=== PATIENT | male | born 1990 | race Caucasian/White ===

== ENCOUNTER 2016-09-10 08:26 | Emergency (ER) | payer SELFPAY ==
[2016-09-10] MEDS ORDERED: ONDANSETRON HCL INJ/PF 4 MG/2 ML SDV IV ONE (08:38)
[2016-09-10] MEDS ORDERED: KETOROLAC TROMETHAMINE INJ/PF 30 MG/1 ML SDV IV ONE (08:38)
--- NOTE | 2016-09-10 09:21 | ER Document Report ---
ED GI/ - General Time seen by provider: 09:15 Mode of Arrival: Ambulatory Information source: Patient TRAVEL OUTSIDE OF THE [place] IN LAST 30 DAYS: No - HPI Patient complains to provider of: Flank pain, Groin pain Onset: Other - see HPI note Associated symptoms: Hematuria <CARMENCITAJUDIIDALMIS - Last Filed: 09/10/16 13:52> <UMA CAI - Last Filed: 09/10/16 14:44> - General Chief Complaint: Flank Pain Stated Complaint: FLANK PAIN Notes: Patient is a 26 year old male presenting to the emergency department for kidney stones and pain to his left flank. Patient states his pain starts in his back and radiates to his groin area. Patient states he passes kidney stones frequently every few months. Patient states he can usually pass them on his own and he rarely comes to the emergency department to pass them. Patient states he had some hematuria last night and this morning. Patient states his last kidney stone he passed was about 2 months ago. Patient has been seen in the emergency department for kidney stones on 11/2014, 05/2014, and 11/2011. Patient has no known allergies. (IDALMIS TSE) This 26-year-old male patient comes emergency room complaining of pain into the left flank and left lower quadrant abdomen. He noted some hematuria last night, it was worse this morning with discomfort. He reports left hemiparesis stone was about 2 months ago, he frequently passes stones and usually does not need to get help for pain control. He does note that a few nights ago, he noted some hematuria, and a burning stinging discomfort but never developed any abdomen or flank pain. Today his urine shows too numerous to count WBCs and too numerous to count RBCs along with symptoms consistent with a left ureteral stone. We will do a CT limited due to the urine infection, collect a urine for chlamydia and gonorrhea testing, and culture the original clean catch urine. (UMA CAI) - Related Data Allergies/Adverse Reactions: No Known Allergies Allergy (Verified 09/10/16 08:31) Past Medical History - General Information source: Patient - Social History Smoking Status: Current Every Day Smoker Chew tobacco use (# tins/day): No Frequency of alcohol use: None Drug Abuse: None Family History: Arthritis, CAD, CVA, DM, Hyperlipidemia, Hypertension, Malignancy, Thyroid Disfunction Patient has suicidal ideation: No Patient has homicidal ideation: No Pulmonary Medical History: Reports: Hx Bronchitis, Hx Pneumonia Renal/ Medical History: Reports: Hx Kidney Stones - Immunizations Hx Diphtheria, Pertussis, Tetanus Vaccination: Yes - 2013 <IDALMIS TSE - Last Filed: 09/10/16 13:52> Review of Systems - Review of Systems Constitutional: No symptoms reported EENT: No symptoms reported Cardiovascular: No symptoms reported Respiratory: No symptoms reported Gastrointestinal: No symptoms reported Genitourinary: See HPI, Flank pain Male Genitourinary: No symptoms reported Musculoskeletal: See HPI Skin: No symptoms reported Hematologic/Lymphatic: No symptoms reported Neurological/Psychological: No symptoms reported -: Yes All other systems reviewed and negative <IDALMIS TSE - Last Filed: 09/10/16 13:52> Physical Exam - Vital signs Interpretation: Normal - General General appearance: Alert, Other - appears uncomfortable In distress: Mild - HEENT Head: Normocephalic, Atraumatic Eyes: Normal Pupils: PERRL Mucous membranes: Moist - Respiratory Respiratory status: No respiratory distress Chest status: Nontender Breath sounds: Normal Chest palpation: Normal - Cardiovascular Rhythm: Regular Heart sounds: Normal auscultation Murmur: No - Abdominal Inspection: Normal Distension: No distension Bowel sounds: Normal Tenderness: Tender - tenderness to palpation to the left lower quadrant Organomegaly: No organomegaly - Back Back: Normal, CVA tenderness - left - Extremities General upper extremity: Normal inspection, Normal ROM, Normal strength General lower extremity: Normal inspection, Normal ROM, Normal strength - Neurological Neuro grossly intact: Yes Cognition: Normal Orientation: AAOx4 [place] Coma Scale Eye Opening: Spontaneous [place]an Coma Scale Verbal: Oriented Karan Coma Scale Motor: Obeys Commands Karan Coma Scale Total: 15 Speech: Normal - Psychological Associated symptoms: Normal affect, Normal mood - Skin Skin Temperature: Warm Skin Moisture: Dry <IDALMIS TSE - Last Filed: 09/10/16 13:52> <UMA CAI - Last Filed: 09/10/16 14:44> - Vital signs Vitals: Pulse Resp BP Pulse Ox 82 24 H 148/99 H 99 09/10/16 08:33 09/10/16 08:33 09/10/16 08:33 09/10/16 08:33 Course - Laboratory Result Diagrams: 09/10/16 09:49 09/10/16 09:49 <IDALMIS TSE - Last Filed: 09/10/16 13:52> - Laboratory Result Diagrams: 09/10/16 09:49 09/10/16 09:49 <UMA CAI - Last Filed: 09/10/16 14:44> - Re-evaluation Re-evalutation: 09/10/16 14:44 The patient has remained quite comfortable for several hours with only the Toradol injection. He will be discharged home with antibiotics, pain medication , instructions to drink plenty of fluids, follow-up with [facility] urology, return to emergency room for fever, worsening pain that can't be controlled, or any other concerning symptoms. (UMA CAI) - Vital Signs Vital signs: Temp Pulse Resp BP Pulse Ox 97.6 F 54 L 16 109/59 L 96 09/10/16 12:04 09/10/16 12:04 09/10/16 12:04 09/10/16 12:04 09/10/16 12:04 - Laboratory Laboratory results interpreted by me: 09/10/16 09/10/16 09/10/16 09:49 09:49 10:00 WBC 12.4 H Seg Neutrophils % 84.3 H Lymphocytes % 8.4 L Absolute Neutrophils 10.4 H Calcium 10.3 H Urine Protein 100 H Urine Ketones Urine Blood LARGE H Ur Leukocyte Esterase LARGE H Urine Ascorbic Acid 40 H 09/10/16 12:53 WBC Seg Neutrophils % Lymphocytes % Absolute Neutrophils Calcium Urine Protein 100 H Urine Ketones TRACE H Urine Blood LARGE H Ur Leukocyte Esterase LARGE H Urine Ascorbic Acid 20 H Discharge <IDALMIS TSE - Last Filed: 09/10/16 13:52> <UMA CAI - Last Filed: 09/10/16 14:44> - Discharge Clinical Impression: Ureterolithiasis Urinary tract infection Qualifiers: Urinary tract infection type: site unspecified Hematuria presence: with hematuria Qualified Code(s): N39.0 - Urinary tract infection, site not specified ; R31.9 - Hematuria, unspecified Condition: Stable Disposition: HOME, SELF-CARE Additional Instructions: Kidney Stone You are passing a kidney stone. These stones are usually due to increased calcium or uric acid concentrations in your urine. Stones within the kidney itself are not painful. The pain occurs as the stone leaves the kidney to pass down the long tube, called the ureter, leading to the bladder. If the stone is small, it will usually pass by itself. Most patients can pass the stone at home. You will usually receive medications for pain, nausea or vomiting, and sometimes a medication to assist in passing the kidney stone. However, if the pain is very severe or if vomiting prevents you from taking oral pain medications, you may need to return for further treatment. Drink three or four quarts of fluids per day. You will be given pain medication (if needed) and urine strainers. Strain all your urine to see if the stone passes. If your doctor has asked you to bring the stone in for analysis, return with the stone once it has passed. Return if pain or vomiting become severe, if you develop a high fever, if you are unable to pass your urine, or if other unusual symptoms occur. Urinary Tract Infection: Your evaluation indicates that you have a urinary tract infection. This is due to germs growing in the bladder. This is a common problem. This infection usually responds quickly to antibiotics. Your antibiotic should be taken exactly as prescribed. Drink plenty of fluids -- three to four quarts a day. Certain urine infections require a culture. If the doctor obtained a culture, the results will be back in two days. You should call to see if a change in treatment is needed. A repeat urinalysis after you finish treatment is often recommended. The physician will let you know if further testing is required. Call the doctor if you develop fever, chills, flank pain, inability to urinate, or blood in the urine. DRINK LOTS OF WATER. TAKE THE MEDICATIONS PRESCRIBED. STRAIN YOUR URINE. FOLLOW UP WITH [facility]. RETURN TO THE EMERGENCY ROOM IF ANY NEW OR WORSENING SYMPTOMS. Prescriptions: Doxycycline Hyclate 100 mg PO BID #14 tablet. Oxycodone HCl/Acetaminophen [Percocet 5-325 mg Tablet] 1 - 2 tab PO ASDIR PRN # 15 tablet PRN Reason: Referrals: [facility] [Provider Group] - Follow up as needed Scribe Attestation: 09/10/16 14:43 I personally performed the services described in the documentation, reviewed and edited the documentation which was dictated to the scribe in my presence, and it accurately records my words and actions. (UMA CAI) Scribe Documentation - Scribe Written by Scribe:: Idalmis Tse 09/10/16 10:35 acting as scribe for :: Leigh <IDALMIS TSE - Last Filed: 09/10/16 13:52>
[2016-09-10 10:20] LABS: ABSOLUTE EOSINOPHILS # (AUTO) 0.3 10^3/uL (0.0-0.6); ABSOLUTE MONOCYTES (AUTO) 0.6 10^3/uL (0.1-1.4); ABSOLUTE NEUT (AUTO) 10.4 10^3/uL (1.7-8.2); BASOPHILS % (AUTO) 0.4 % (0-2); EOSINOPHILS % (AUTO) 2.4 % (0-6); HEMATOCRIT 43.4 % (37.9-51.0); HEMOGLOBIN 14.6 g/dL (13.5-17.0); HGB HCT DIFFERENCE 0.4; LYMPHOCYTES % (AUTO) 8.4 % (13-45); MEAN CORPUSCULAR HEMOGLOBIN 32.1 pg (27.0-33.4); MEAN CORPUSCULAR HGB CONC 33.6 g/dL (32.0-36.0); MEAN CORPUSCULAR VOLUME 95 fl (80-97); MONOCYTES % (AUTO) 4.5 % (3-13); RED BLOOD COUNT 4.55 10^6/uL (4.35-5.55); SEGMENTED NEUTROPHILS % (AUTO) 84.3 % (42-78); WHITE BLOOD COUNT 12.4 10^3/uL (4.0-10.5)
[2016-09-10 10:30] LABS: ALANINE AMINOTRANSFERASE 32 U/L (21-72); ALBUMIN 4.2 g/dL (3.5-5.0); ALKALINE PHOSPHATASE 51 U/L (38-126); ANION GAP 10 (5-19); ASPARTATE AMINO TRANSFERASE 23 U/L (17-59); BILIRUBIN,TOTAL 0.4 mg/dL (0.2-1.3); BLOOD UREA NITROGEN 12 mg/dL (7-20); CALCIUM 10.3 mg/dL (8.4-10.2); CARBON DIOXIDE 28 mmol/L (22-30); CHLORIDE 104 mmol/L (98-107); CREATININE RESULT 0.95 mg/dL (0.52-1.25); GLUCOSE 92 mg/dL (75-110); LIPASE 55.9 U/L (23-300); POTASSIUM 4.1 mmol/L (3.6-5.0); SODIUM 141.7 mmol/L (137-145); TOTAL PROTEIN 7.2 g/dL (6.3-8.2)
[2016-09-10 10:37] LABS: APPEARANCE,URINE CLOUDY; BILIRUBIN,URINE NEGATIVE (NEGATIVE); GLUCOSE, URINE NEGATIVE (NEGATIVE); KETONES,URINE NEGATIVE (NEGATIVE); LEUKOCYTE ESTERASE,URINE LARGE (NEGATIVE); NITRITE,URINE NEGATIVE (NEGATIVE); PROTEIN,URINE 100 mg/dL (NEGATIVE); UROBILINOGEN,URINE NEGATIVE mg/dL (<2.0)
[2016-09-10] MEDS ORDERED: NORMAL SALINE 1000 ML 1,000 ML IV ONE (10:49)
[2016-09-10] MEDS ORDERED: CEFTRIAXONE 1 GM/D5W RTU 50 ML IV ONE (13:02)
[2016-09-10 13:19] LABS: APPEARANCE,URINE CLOUDY; BILIRUBIN,URINE NEGATIVE (NEGATIVE); GLUCOSE, URINE NEGATIVE (NEGATIVE); KETONES,URINE TRACE mg/dL (NEGATIVE); LEUKOCYTE ESTERASE,URINE LARGE (NEGATIVE); NITRITE,URINE NEGATIVE (NEGATIVE); PROTEIN,URINE 100 mg/dL (NEGATIVE); URINE SPECIFIC GRAVITY 1.016; UROBILINOGEN,URINE NEGATIVE mg/dL (<2.0)
[2016-09-10 13:40] LABS: CHLAM PCR NOT DETECTED (NOT DETECT)
[2016-09-10 15:28] VITALS: BP 104/71
== END 2016-09-10 15:29 | disposition home or self-care (01) ==
LOC: ER 08:26
DX: N13.2 Hydronephrosis with renal and ureteral calculous obstruction (principal); N39.0 Urinary tract infection, site not specified; R31.0 Gross hematuria; F17.200 Nicotine dependence, unspecified, uncomplicated
CPT/HCPCS: 99284; 96361; 96375; 96365; 36415; 87086; 83690; 85025; 80053; 81001; 87491; 87591; 76380; J1885; J2405; J7030; J0696

== ENCOUNTER 2016-09-11 06:10 | Emergency (ER) | payer SELFPAY | END 2016-09-11 06:41 | disposition left against medical advice (07) | LOC: ER 06:10 | DX: Z53.21 Procedure and treatment not carried out due to patient leaving prior to being seen by health care provider (principal) ==

== ENCOUNTER 2016-09-12 21:23 | Emergency (ER) | payer SELFPAY ==
[2016-09-12 22:19] VITALS: BP 113/67
== END 2016-09-12 23:10 | disposition left against medical advice (07) ==
LOC: ER 21:23
DX: Z53.21 Procedure and treatment not carried out due to patient leaving prior to being seen by health care provider (principal)

== ENCOUNTER 2016-09-15 07:50 | Emergency (ER) | payer SELFPAY ==
[2016-09-15] MEDS ORDERED: KETOROLAC TROMETHAMINE INJ/PF 30 MG/1 ML SDV IV ONE (08:55)
[2016-09-15] MEDS ORDERED: NORMAL SALINE 1000 ML 1,000 ML IV ONE (08:55)
[2016-09-15] MEDS ORDERED: ONDANSETRON HCL INJ/PF 4 MG/2 ML SDV IV ONE (08:55)
[2016-09-15 09:08] LABS: ABSOLUTE EOSINOPHILS # (AUTO) 0.4 10^3/uL (0.0-0.6); ABSOLUTE LYMPHOCYTES (AUTO) 1.4 10^3/uL (0.5-4.7); ABSOLUTE MONOCYTES (AUTO) 0.7 10^3/uL (0.1-1.4); BASOPHILS % (AUTO) 0.2 % (0-2); EOSINOPHILS % (AUTO) 2.7 % (0-6); HEMATOCRIT 43.5 % (37.9-51.0); HEMOGLOBIN 14.9 g/dL (13.5-17.0); HGB HCT DIFFERENCE 1.2; LYMPHOCYTES % (AUTO) 10.7 % (13-45); MEAN CORPUSCULAR HEMOGLOBIN 32.5 pg (27.0-33.4); MEAN CORPUSCULAR HGB CONC 34.2 g/dL (32.0-36.0); MEAN CORPUSCULAR VOLUME 95 fl (80-97); MONOCYTES % (AUTO) 5.1 % (3-13); RED BLOOD COUNT 4.58 10^6/uL (4.35-5.55); RED CELL DISTRIBUTION WIDTH 12.9 % (11.5-14.0); SEGMENTED NEUTROPHILS % (AUTO) 81.3 % (42-78); WHITE BLOOD COUNT 13.5 10^3/uL (4.0-10.5)
[2016-09-15 09:18] LABS: APPEARANCE,URINE SLIGHTLY-CLOUDY; BILIRUBIN,URINE NEGATIVE (NEGATIVE); GLUCOSE, URINE NEGATIVE (NEGATIVE); KETONES,URINE NEGATIVE (NEGATIVE); LEUKOCYTE ESTERASE,URINE LARGE (NEGATIVE); NITRITE,URINE NEGATIVE (NEGATIVE); PROTEIN,URINE 100 mg/dL (NEGATIVE); URINE SPECIFIC GRAVITY 1.015; UROBILINOGEN,URINE NEGATIVE mg/dL (<2.0)
[2016-09-15 09:19] LABS: ALANINE AMINOTRANSFERASE 22 U/L (21-72); ALBUMIN 4.5 g/dL (3.5-5.0); ALKALINE PHOSPHATASE 49 U/L (38-126); ANION GAP 14 (5-19); ASPARTATE AMINO TRANSFERASE 21 U/L (17-59); BILIRUBIN,TOTAL 0.5 mg/dL (0.2-1.3); BLOOD UREA NITROGEN 13 mg/dL (7-20); CALCIUM 11.2 mg/dL (8.4-10.2); CARBON DIOXIDE 24 mmol/L (22-30); CHLORIDE 105 mmol/L (98-107); CREATININE RESULT 1.02 mg/dL (0.52-1.25); GLUCOSE 95 mg/dL (75-110); POTASSIUM 4.6 mmol/L (3.6-5.0); SODIUM 143.2 mmol/L (137-145); TOTAL PROTEIN 7.6 g/dL (6.3-8.2)
[2016-09-15] MEDS ORDERED: MORPHINE SULFATE 10 MG/ML INJ IV ONE (09:44)
[2016-09-15 10:36] VITALS: BP 135/83
--- NOTE | 2016-09-15 10:57 | ER Document Report ---
ED GI/ - General Chief Complaint: Possible Kidney Stone Stated Complaint: FLANK PAIN Mode of Arrival: Ambulatory Information source: Patient Notes: Patient states that he was diagnosed with a kidney stone 5 days ago. Patient complains of continued flank pain, hematuria, nausea, vomiting. Patient denies any fever. Patient states he has not followed up with a urologist because he does not have insurance. Patient additionally reports that he does have pain medication at home but has not wanted to take pain medication as he has a previous history of heroin addiction, and does not want to get addicted to pain medications. TRAVEL OUTSIDE OF THE [place] IN LAST 30 DAYS: No - HPI Patient complains to provider of: Abdominal pain, Flank pain, Hematuria Onset: Last week Timing/Duration: Persistent Quality of pain: Sharp Pain Level: 5 Location: LLQ, Left flank Associated symptoms: Hematuria, Nausea, Vomiting. denies: Fever, Urinary hesitancy, Urinary frequency, Urinary retention, Urinary urgency Exacerbated by: Denies Relieved by: Denies Similar symptoms previously: Yes Recently seen / treated by doctor: Yes - Related Data Allergies/Adverse Reactions: No Known Allergies Allergy (Verified 09/15/16 07:58) Past Medical History - General Information source: Patient - Social History Smoking Status: Current Every Day Smoker Chew tobacco use (# tins/day): No Frequency of alcohol use: None Drug Abuse: None Occupation: outboard motor mechanic Family History: Arthritis, CAD, CVA, DM, Hyperlipidemia, Hypertension, Malignancy, Thyroid Disfunction Patient has suicidal ideation: No Patient has homicidal ideation: No Pulmonary Medical History: Reports: Hx Bronchitis, Hx Pneumonia Renal/ Medical History: Reports: Hx Kidney Stones. Denies: Hx Peritoneal Dialysis Surgical Hx: Negative - Immunizations Hx Diphtheria, Pertussis, Tetanus Vaccination: Yes - 2013 Review of Systems - Review of Systems Constitutional: Recent illness - Patient was treated for UTI. denies: Fever EENT: No symptoms reported Cardiovascular: No symptoms reported. denies: Chest pain Respiratory: No symptoms reported. denies: Cough, Short of breath Gastrointestinal: Abdominal pain, Nausea, Vomiting. denies: Diarrhea Genitourinary: Flank pain, Hematuria Male Genitourinary: No symptoms reported Musculoskeletal: Back pain Skin: No symptoms reported Hematologic/Lymphatic: No symptoms reported Neurological/Psychological: No symptoms reported Physical Exam - Vital signs Vitals: Temp Pulse Resp BP Pulse Ox 97.7 F 65 24 H 130/85 H 98 09/15/16 07:55 09/15/16 07:55 09/15/16 07:55 09/15/16 07:55 09/15/16 07:55 - General General appearance: Appears well, Alert In distress: Mild - HEENT Head: Normocephalic, Atraumatic Eyes: Normal Nasal: Normal Mouth/Lips: Normal Mucous membranes: Normal Neck: Normal, Supple. No: Lymphadenopathy - Respiratory Respiratory status: No respiratory distress Chest status: Nontender Breath sounds: Normal. No: Rales, Rhonchi, Stridor, Wheezing Chest palpation: Normal - Cardiovascular Rhythm: Regular Heart sounds: S1 appreciated, S2 appreciated Murmur: No - Abdominal Inspection: Normal Distension: No distension Bowel sounds: Normal Tenderness: Tender - Mild left lateral abdominal tenderness Organomegaly: No organomegaly - Back Back: CVA tenderness - Left. No: Vertebra tenderness - Extremities General upper extremity: Normal inspection, Normal strength General lower extremity: Normal inspection, Normal strength - Neurological Neuro grossly intact: Yes Cognition: Normal Karan Coma Scale Eye Opening: Spontaneous [place] Coma Scale Verbal: Oriented [place] Coma Scale Motor: Obeys Commands Karan Coma Scale Total: 15 - Psychological Associated symptoms: Normal affect, Normal mood - Skin Skin Temperature: Warm Skin Moisture: Dry Skin Color: Normal Course - Re-evaluation Re-evalutation: 09/15/16 10:[address] Miguel regarding patient presentation. Reviewed patient' s diagnostic test results from 09/10/2016 visit as well as today's. Patient with urinalysis findings that seem improved from prior ER visit. Patient's urine culture from ER visit on 09/10/16 had no growth. Patient with normal renal function. Patient reports that his pain symptoms have improved after pain medication. Discussed planning care with patient. Patient encouraged that he will have to follow-up with urology for further management as it is likely that he may not be able to pass this kidney stone. Patient states that he would like to have something else to manage his pain symptoms as he wants to avoid use of narcotics as much as possible. Discussed literature findings regarding Flomax. Patient would like to take this medication. - Vital Signs Vital signs: Temp Pulse Resp BP Pulse Ox 97.7 F 55 L 16 135/83 H 99 09/15/16 10:32 09/15/16 10:32 09/15/16 10:32 09/15/16 10:32 09/15/16 10:32 - Laboratory Result Diagrams: 09/15/16 08:26 09/15/16 08:26 Laboratory results interpreted by me: 09/15/16 09/15/16 09/15/16 08:07 08:26 08:26 WBC 13.5 H Seg Neutrophils % 81.3 H Lymphocytes % 10.7 L Absolute Neutrophils 11.0 H Calcium 11.2 H Urine Protein 100 H Urine Blood LARGE H Ur Leukocyte Esterase LARGE H 09/15/16 10:55 Labs- Entire Visit 09/15/16 09/15/16 09/15/16 08:07 08:26 08:26 WBC 13.5 H RBC 4.58 Hgb 14.9 Hct 43.5 MCV 95 MCH 32.5 MCHC 34.2 RDW 12.9 Plt Count 270 Seg Neutrophils % 81.3 H Lymphocytes % 10.7 L Monocytes % 5.1 Eosinophils % 2.7 Basophils % 0.2 Absolute Neutrophils 11.0 H Absolute Lymphocytes 1.4 Absolute Monocytes 0.7 Absolute Eosinophils 0.4 Absolute Basophils 0.0 Sodium 143.2 Potassium 4.6 Chloride 105 Carbon Dioxide 24 Anion Gap 14 BUN 13 Creatinine 1.02 Est GFR ( Amer) > 60 Est GFR (Non-Af Amer) > 60 Glucose 95 Calcium 11.2 H Total Bilirubin 0.5 Direct Bilirubin 0.0 AST 21 ALT 22 Alkaline Phosphatase 49 Total Protein 7.6 Albumin 4.5 Urine Color YELLOW Urine Appearance SLIGHTLY-CLOUDY Urine pH 5.0 Ur Specific [place] 1.015 Urine Protein 100 H Urine Glucose (UA) NEGATIVE Urine Ketones NEGATIVE Urine Blood LARGE H Urine Nitrite NEGATIVE Urine Bilirubin NEGATIVE Urine Urobilinogen NEGATIVE Ur Leukocyte Esterase LARGE H Urine WBC (Auto) 107 Urine RBC (Auto) 65 Urine Bacteria (Auto) TRACE Urine Mucus (Auto) RARE Urine Ascorbic Acid NEGATIVE - Diagnostic Test Radiology reviewed: Reports reviewed - From previous ER visit Discharge - Discharge Clinical Impression: Ureterolithiasis, Flank pain Disposition: HOME, SELF-CARE Additional Instructions: Return immediately for any new or worsening symptoms Followup with your primary care provider, call tomorrow to make a followup appointment You have got to follow-up with the urologist for further management. Call today for an appointment time. Cultures are pending, we will call if you need any different treatment. Finish taking your antibiotic that was previously prescribed. KIDNEY STONE: You are passing or have passed a kidney stone. These stones are usually due to increased calcium or uric acid concentrations in your urine. Stones within the kidney itself are not painful. The pain occurs as the stone leaves the kidney to pass down the long tube, called the ureter, leading to the bladder. If the stone is small, it will usually pass by itself. Most patients can pass the stone at home. You will usually receive medications for pain, nausea or vomiting, and sometimes a medication to assist in passing the kidney stone. However, if the pain is very severe or if vomiting prevents you from taking oral pain medications, you may need to return for further treatment. Drink three or four quarts of fluids per day. You will be given pain medication (if needed) and urine strainers. Strain all your urine to see if the stone passes. If your doctor has asked you to bring the stone in for analysis, return with the stone once it has passed. Return if pain or vomiting become severe, if you develop a high fever, if you are unable to pass your urine, or if other unusual symptoms occur. TORADOL INJECTION: You have been given an injection of ketorolac tromethamine (Toradol). This is an excellent, safe drug for pain control. It also has potent antiinflammatory action. You should have significant pain relief within about one hour. Toradol is not addicting and is non-sedating. It does not interfere with driving or work. Call or return if you develop itching, hives, shortness of breath, or rash. PAIN MEDICATION INJECTION: You have received an injection of a pain medication. You should experience significant pain relief within 45 minutes. This drug is a narcotic - - it will impair your judgement, slow your reaction time and make you sleepy ( as well as relieve your pain). Narcotics also can cause nausea. You should not drive, work with machinery, or perform any task requiring mental alertness until all effects of the medication are gone -- six to eight hours. Do not take any alcohol, or sedatives, and do not take any other medication without checking with your physician. ANTINAUSEA MEDICATION: You have been given a medication to suppress nausea and vomiting. This type of medication can be given as a shot, pill, or suppository. It will usually last for many hours. Pills and shots usually last six to eight hours, suppositories last about 12 hours. For the typical illness, only one or two doses of the medication may be necessary. Mild lightheadedness may occur. This type of medicine can cause drowsiness. Do not drive or operate dangerous machinery while under its influence. Do not mix with alcohol. See your doctor at once if you have muscle spasms or tightness, or uncontrollable motions (particularly of the neck, mouth, or jaw). Persistent vomiting or severe lightheadedness should also be evaluated by the physician. ORAL NARCOTIC MEDICATION: You have been given a prescription for pain control. This medication is a narcotic. It's best taken with food, as nausea can result if taken on an empty stomach. Don't operate machinery or drive within six hours of taking this medication. Do not combine this medicine with alcohol, or with any medication which can cause sedation (such as cold tablets or sleeping pills) unless you get permission from the physician. Narcotics tend to cause constipation. If possible, drink plenty of fluids and eat a diet high in fiber and fruits. Please be aware that prescription narcotics also have the potential for abuse. People become addicted to these medications because of the general sense of wellbeing that they induce. This feeling along with a significant reduction in tension, anxiety, and aggression provides a stimulating seductive quality to these drugs. Once your pain is under control, we encourage you to discard your unused narcotics. FLOMAX (tamsulosin): Flomax is a medicine that shrinks the prostate gland. It helps relieve symptoms of benign prostatic hypertrophy, such as frequent urination, weak stream, and inadequate emptying. It has been shown to dilate the ureter (tube leading from the kidney to the bladder) and help in passing kidney stones Flomax usually causes no side effects. You may notice slight tiredness and dizziness for a few days. Some patients develop nasal congestion. Rarely, impotence can occur. If the symptoms are bothersome and don't improve with continued use, call your doctor. Contact your doctor or return if you have fainting spells, severe weakness or dizziness, shortness of breath, or rash. FOLLOW-UP CARE: If you have been referred to a physician for follow-up care, call the physician s office for an appointment as you were instructed or within the next two days. If you experience worsening or a significant change in your symptoms, notify the physician immediately or return to the Emergency Department at any time for re-evaluation. Prescriptions: Oxycodone HCl/Acetaminophen [Percocet 5-325 mg Tablet] 1 - 2 tab PO ASDIR PRN # 15 tablet PRN Reason: Promethazine HCl [Phenergan 25 mg Tablet] 25 mg PO Q6H PRN #15 tablet PRN Reason: Tamsulosin HCl [Flomax 0.4 mg Cap.sr] 0.4 mg PO DAILY #7 cap.sr.24h Forms: Return to Work Referrals: [facility] [Provider Group] - Follow up as needed [facility] [Provider Group] - Follow up as needed LUCY TRUJILLO MD [[facility]] - Follow up tomorrow
== END 2016-09-15 11:35 | disposition home or self-care (01) ==
LOC: ER 07:50
DX: N20.1 Calculus of ureter (principal); R31.9 Hematuria, unspecified; R10.9 Unspecified abdominal pain; R11.2 Nausea with vomiting, unspecified; F17.210 Nicotine dependence, cigarettes, uncomplicated
CPT/HCPCS: 99284; 96374; 96375; 36415; 87040; 87086; 85025; 80053; 81001; J1885; J2270; J2405; J7030

== ENCOUNTER 2016-12-15 12:14 | Emergency (ER) | payer SELFPAY ==
[2016-12-15] MEDS ORDERED: HYDROMORPHONE HCL INJ/PF 2 MG/ML AMPULE IV ONE (12:32)
[2016-12-15] MEDS ORDERED: ONDANSETRON HCL INJ/PF 4 MG/2 ML SDV IV ONE (12:32)
[2016-12-15] MEDS ORDERED: DIAZEPAM INJ 10 MG/2 ML DISP.SYRIN IV ONE (12:46)
--- NOTE | 2016-12-15 12:47 | ER Document Report ---
ED Medical Screen (RME) - General Chief Complaint: Abdominal Pain Stated Complaint: FLANK PAIN Time Seen by Provider: 12/15/16 12:46 Mode of Arrival: Wheelchair Information source: Patient TRAVEL OUTSIDE OF THE [place] IN LAST 30 DAYS: No - HPI Patient complains to provider of: Right flank and low back pain Onset: This morning Notes: 12/15/16 12:47 Is a 26-year-old male with a history of kidney stones, presents to the emergency room for complaints of right flank and low back pain that started this morning, and is associated with nausea and vomiting, he is also had recent hematuria - Related Data Allergies/Adverse Reactions: No Known Allergies Allergy (Verified 09/15/16 07:58) Past Medical History Pulmonary Medical History: Reports: Hx Bronchitis, Hx Pneumonia Renal/ Medical History: Reports: Hx Kidney Stones. Denies: Hx Peritoneal Dialysis - Immunizations Hx Diphtheria, Pertussis, Tetanus Vaccination: Yes - 2013 Physical Exam - Vital signs Vitals: Temp Pulse Resp BP Pulse Ox 97.5 F 55 L 24 H 135/84 H 100 12/15/16 12:32 12/15/16 12:32 12/15/16 12:32 12/15/16 12:32 12/15/16 12:32 Course - Vital Signs Vital signs: Temp Pulse Resp BP Pulse Ox 97.5 F 55 L 24 H 135/84 H 100 12/15/16 12:32 12/15/16 12:32 12/15/16 12:32 12/15/16 12:32 12/15/16 12:32 - Laboratory Result Diagrams: 12/15/16 11:25
[2016-12-15] MEDS ORDERED: DIPHENHYDRAMINE HCL 50 MG/ML VIAL IV ONE (12:51)
[2016-12-15] MEDS ORDERED: METOCLOPRAMIDE HCL INJ/PF 10 MG/2 ML SDV IV ONE (12:51)
[2016-12-15 13:20] LABS: ALANINE AMINOTRANSFERASE 37 U/L (21-72); ALBUMIN 5.2 g/dL (3.5-5.0); ALKALINE PHOSPHATASE 76 U/L (38-126); ANION GAP 18 (5-19); ASPARTATE AMINO TRANSFERASE 41 U/L (17-59); BILIRUBIN,DIRECT 0.4 mg/dL (0.0-0.4); BILIRUBIN,TOTAL 0.7 mg/dL (0.2-1.3); BLOOD UREA NITROGEN 12 mg/dL (7-20); CALCIUM 11.1 mg/dL (8.4-10.2); CARBON DIOXIDE 25 mmol/L (22-30); CHLORIDE 102 mmol/L (98-107); CREATININE RESULT 1.02 mg/dL (0.52-1.25); GLUCOSE 131 mg/dL (75-110); POTASSIUM 4.5 mmol/L (3.6-5.0); SODIUM 145.3 mmol/L (137-145); TOTAL PROTEIN 9.2 g/dL (6.3-8.2)
[2016-12-15 13:41] LABS: ABSOLUTE BASOPHILS # (AUTO) 0.1 10^3/uL (0.0-0.2); ABSOLUTE EOSINOPHILS # (AUTO) 0.2 10^3/uL (0.0-0.6); ABSOLUTE LYMPHOCYTES (AUTO) 1.5 10^3/uL (0.5-4.7); ABSOLUTE MONOCYTES (AUTO) 0.5 10^3/uL (0.1-1.4); ABSOLUTE NEUT (AUTO) 13.7 10^3/uL (1.7-8.2); BASOPHILS % (AUTO) 0.3 % (0-2); EOSINOPHILS % (AUTO) 1.1 % (0-6); HEMATOCRIT 49.4 % (37.9-51.0); HEMOGLOBIN 16.4 g/dL (13.5-17.0); HGB HCT DIFFERENCE -0.2; LYMPHOCYTES % (AUTO) 9.2 % (13-45); MEAN CORPUSCULAR HEMOGLOBIN 31.6 pg (27.0-33.4); MEAN CORPUSCULAR HGB CONC 33.2 g/dL (32.0-36.0); MEAN CORPUSCULAR VOLUME 95 fl (80-97); MONOCYTES % (AUTO) 2.9 % (3-13); RED BLOOD COUNT 5.18 10^6/uL (4.35-5.55); SEGMENTED NEUTROPHILS % (AUTO) 86.5 % (42-78); WHITE BLOOD COUNT 15.9 10^3/uL (4.0-10.5)
[2016-12-15 14:16] LABS: APPEARANCE,URINE CLOUDY; BILIRUBIN,URINE NEGATIVE (NEGATIVE); GLUCOSE, URINE NEGATIVE (NEGATIVE); KETONES,URINE NEGATIVE (NEGATIVE); LEUKOCYTE ESTERASE,URINE MODERATE (NEGATIVE); NITRITE,URINE NEGATIVE (NEGATIVE); PROTEIN,URINE >=500 mg/dL (NEGATIVE); URINE SPECIFIC GRAVITY 1.025; UROBILINOGEN,URINE NEGATIVE mg/dL (<2.0)
--- NOTE | 2016-12-15 14:31 | RADIOLOGY REPORT (SQ) ---
EXAM DESCRIPTION: CT LTD RENAL STONE PROTOCOL ON COMPLETED DATE/TIME: 12/15/2016 2:19 pm REASON FOR STUDY: flank pain COMPARISON: None. TECHNIQUE: CT scan of the abdomen and pelvis performed without intravenous or oral contrast. Images reviewed with lung, soft tissue, and bone windows. Reconstructed coronal and sagittal MPR images revi ewed. All images stored on PACS. All CT scanners at this facility use dose modulation, iterative reconstruction, and/or weight based d osing when appropriate to reduce radiation dose to as low as reasonably achievable (ALARA). [facility]: Dose Right [facility]: CareDose [facility]: Dose Right [facility]: Teradose 4D [facility]: Smart PillGuard RADIATION DOSE: Up-to-date CT equipment and radiation dose reduction techniques were employed. CTDIv ol: 4.9 mGy. DLP: 270 mGy-cm.mGy. LIMITATIONS: None. FINDINGS: LOWER CHEST: No significant findings. No nodules or infiltrates. NON-CONTRASTED LIVER, SPLEEN, ADRENALS: Evaluation limited by lack of IV contrast. No identified sign ificant masses. PANCREAS: No masses. No peripancreatic inflammatory changes. GALLBLADDER: No identified stones by CT criteria. No inflammatory changes to suggest cholecystitis. RIGHT KIDNEY AND URETER: No suspicious masses. Assessment limited by lack of IV contrast. There is a 7 x 21 x 12 mm calculus in the right renal pelvis. Mild right hydronephrosis. LEFT KIDNEY AND URETER: No suspicious masses. Assessment limited by lack of IV contrast. No signifi cant calcifications. No hydronephrosis or hydroureter. AORTA AND RETROPERITONEUM: No aneurysm. No retroperitoneal masses or adenopathy. BOWEL AND PERITONEAL CAVITY: No obvious masses or inflammatory changes. No free fluid. APPENDIX: Normal. PELVIS, BLADDER, AND ABDOMINAL WALL:The urinary bladder is not filled and cannot be evaluated. There is no free fluid in the pelvis. BONES: No significant findings. OTHER: No other significant finding. IMPRESSION: There is a large calculus in the right renal pelvis. TECHNICAL DOCUMENTATION: JOB ID: [id number] Quality ID # [id number]: Final reports with documentation of one or more dose reduction techniques (e.g., Au tomated exposure control, adjustment of the mA and/or kV according to patient size, use of iterative reconstruction technique) 2010 [employer]- All Rights Reserved
--- NOTE | 2016-12-15 14:48 | ER Document Report ---
ED General - General Chief Complaint: Abdominal Pain Stated Complaint: FLANK PAIN Time Seen by Provider: 12/15/16 12:46 Mode of Arrival: Wheelchair Information source: Patient Notes: 26-year-old male history of multiple stones with complaints of right flank pain. Patient notes the pain is different from previous kidney stones. Denies any fevers or chills admits to nausea and vomiting TRAVEL OUTSIDE OF THE [place] IN LAST 30 DAYS: No - HPI Onset: Just prior to arrival Onset/Duration: Sudden Quality of pain: Achy Severity: Moderate Pain Level: 3 Associated symptoms: Nausea, Vomiting Exacerbated by: Denies Relieved by: Denies Similar symptoms previously: Yes Recently seen / treated by doctor: Yes - Related Data Allergies/Adverse Reactions: No Known Allergies Allergy (Verified 09/15/16 07:58) Past Medical History - General Information source: Patient - Social History Smoking Status: Never Smoker Cigarette use (# per day): No Chew tobacco use (# tins/day): No Smoking Education Provided: No Family History: Arthritis, CAD, CVA, DM, Hyperlipidemia, Hypertension, Malignancy, Thyroid Disfunction Patient has suicidal ideation: No Patient has homicidal ideation: No Pulmonary Medical History: Reports: Hx Bronchitis, Hx Pneumonia Renal/ Medical History: Reports: Hx Kidney Stones. Denies: Hx Peritoneal Dialysis - Immunizations Hx Diphtheria, Pertussis, Tetanus Vaccination: Yes - 2013 Review of Systems - Review of Systems Notes: REVIEW OF SYSTEMS: CONSTITUTIONAL : Denies fever, chills, or sweats. Denies recent illness. EENT: Denies eye, ear, throat, or mouth pain or symptoms. Denies nasal or sinus congestion or discharge. Denies throat, tongue, or mouth swelling or difficulty swallowing. CARDIOVASCULAR: Denies chest pain. Denies palpitations or racing or irregular heart beat. Denies ankle edema. RESPIRATORY: Denies cough, cold, or chest congestion. Denies shortness of breath, difficulty breathing, or wheezing. GASTROINTESTINAL: Admits to flank pain GENITOURINARY: Denies difficulty urinating, painful urination, burning, frequency, blood in urine, or discharge. MUSCULOSKELETAL: Denies back or neck pain or stiffness. Denies joint pain or swelling. SKIN: Denies rash, lesions or sores. HEMATOLOGIC : Denies easy bruising or bleeding. LYMPHATIC: Denies swollen, enlarged glands. NEUROLOGICAL: Denies confusion or altered mental status. Denies passing out or loss of consciousness. Denies dizziness or lightheadedness. Denies headache. Denies weakness or paralysis or loss of use of either side. Denies problems with gait or speech. Denies sensory loss, numbness, or tingling. Denies seizures. PSYCHIATRIC: Denies anxiety or stress. Denies depression, suicidal ideation, or homicidal ideation. ALL OTHER SYSTEMS REVIEWED AND NEGATIVE. Dictation was performed using [employer] voice recognition software PHYSICAL EXAMINATION: GENERAL: Well-appearing, well-nourished and in moderate acute distress. HEAD: Atraumatic, normocephalic. EYES: Pupils equal round and reactive to light, extraocular movements intact, sclera anicteric, conjunctiva are normal. ENT: Nares patent, oropharynx clear without exudates. Moist mucous membranes. NECK: Normal range of motion, supple without lymphadenopathy LUNGS: Breath sounds clear to auscultation bilaterally and equal. No wheezes rales or rhonchi. HEART: Regular rate and rhythm without murmurs ABDOMEN: Soft, CVA tenderness right Musculoskeletal: Normal range of motion, no pitting or edema. No cyanosis. NEUROLOGICAL: Cranial nerves grossly intact. Normal speech, normal gait. Normal sensory, motor exams PSYCH: Normal mood, normal affect. SKIN: Warm, Dry, normal turgor, no rashes or lesions noted. Physical Exam - Vital signs Vitals: Temp Pulse Resp BP Pulse Ox 97.5 F 55 L 24 H 135/84 H 100 12/15/16 12:32 12/15/16 12:32 12/15/16 12:32 12/15/16 12:32 12/15/16 12:32 Course - Re-evaluation Re-evalutation: 12/15/16 14:43 Patient is noted to have an elevated white count 16, urinalysis is consistent with infectious process, a CT does note a stone in the kidney itself but no obstructive stone. Patient will be started on Cipro urine culture is pending otherwise patient looks well has been instructed to follow-up with urology. Patient states he will do so After performing a Medical Screening Examination, I estimate there is LOW risk for ACUTE APPENDICITIS, BOWEL OBSTRUCTION, ACUTE CHOLECYSTITIS, PERFORATED DIVERTICULITIS, INCARCERATED HERNIA, PANCREATITIS, or PERFORATED ULCER, thus I consider the discharge disposition reasonable. Also, there is no evidence or peritonitis, sepsis, or toxicity. I have reevaluated this patient multiple times and no significant life threatening changes are noted. The patient and I have discussed the diagnosis and risks, and we agree with discharging home with close follow-up with the understanding that symptoms and presentations can change. We also discussed returning to the Emergency Department immediately if new or worsening symptoms occur. We have discussed the symptoms which are most concerning (e.g., bloody stool, fever, changing or worsening pain, intractable vomiting - standard verbal up date) that necessitate immediate return. - Vital Signs Vital signs: Temp Pulse Resp BP Pulse Ox 97.5 F 55 L 24 H 135/84 H 100 12/15/16 12:32 12/15/16 12:32 12/15/16 12:32 12/15/16 12:32 12/15/16 12:32 - Laboratory Result Diagrams: 12/15/16 11:25 12/15/16 11:25 Laboratory results interpreted by me: 12/15/16 12/15/16 12/15/16 11:25 11:25 13:49 WBC 15.9 H Seg Neutrophils % 86.5 H Lymphocytes % 9.2 L Monocytes % 2.9 L Absolute Neutrophils 13.7 H Sodium 145.3 H Glucose 131 H Calcium 11.1 H Total Protein 9.2 H Albumin 5.2 H Urine Protein >=500 H Urine Blood LARGE H Ur Leukocyte Esterase MODERATE H - Diagnostic Test Radiology reviewed: Image reviewed, Reports reviewed - Stone in the right kidney Discharge - Discharge Clinical Impression: Pyelonephritis, Flank pain Elevated white blood cell count Qualifiers: Leukocytosis type: unspecified Qualified Code(s): D72.829 - Elevated white blood cell count, unspecified Condition: Stable Disposition: HOME, SELF-CARE Instructions: Abdominal Pain ([facility]), Pyelonephritis ([facility]) Prescriptions: Ciprofloxacin HCl [Cipro 500 mg Tablet] 500 mg PO BID #20 tablet Metoclopramide HCl [Reglan] 10 mg PO Q6 #14 tablet Oxycodone HCl/Acetaminophen [Percocet 5-325 mg Tablet] 1 - 2 tab PO Q4H PRN #15 tablet PRN Reason: Referrals: LETTY CHUNG MD [ACTIVE STAFF] - Follow up tomorrow
[2016-12-15 15:27] VITALS: BP 128/92
== END 2016-12-15 15:20 | disposition home or self-care (01) ==
LOC: ER 12:14
DX: N12 Tubulo-interstitial nephritis, not specified as acute or chronic (principal); R10.9 Unspecified abdominal pain; D72.829 Elevated white blood cell count, unspecified
CPT/HCPCS: 99284; 96374; 96375; 36415; 87086; 83690; 85025; 80053; 81001; 76380; J3360; J1170; J2405

== ENCOUNTER 2018-02-09 21:13 | Emergency (ER) | payer OTHER ==
[2018-02-09] MEDS ORDERED: TETRACAINE HCL 0.5% OPH SOLN 2 ML OU ONE (23:59)
[2018-02-10] MEDS ORDERED: ERYTHROMYCIN 0.5% OPH OINTMENT 3.5 GM (ER DISP) OS PRN (00:45)
--- NOTE | 2018-02-10 00:50 | ER Document Report ---
HPI - HPI Pain Level: 4 Notes: Patient presents with chief complaint of left eye pain. 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 Patient denies any change in his vision, denies the use of any corrective lenses or contacts. - EENT EENT: REPORTS: Eye problems - left eye redness, tearing. DENIES: Sore Throat, Ear Pain - NEURO Neurology: DENIES: Headache, Weakness, Vision blurred, Dizzinesss / Vertigo - CARDIOVASCULAR Cardiovascular: DENIES: Chest pain - RESPIRATORY Respiratory: DENIES: Trouble Breathing, Coughing - GASTROINTESTINAL Gastrointestinal: DENIES: Abdominal Pain, Black / Bloody Stools - URINARY Urinary: DENIES: Dysuria, Urgency, Frequency - MUSCULOSKELETAL Musculoskeletal: DENIES: Extremity pain Past Medical History - General Information source: Patient - Social History Smoking Status: Former Smoker Frequency of alcohol use: None Drug Abuse: None Lives with: Family Family History: Arthritis, CAD, CVA, DM, Hyperlipidemia, Hypertension, Malignancy, Thyroid Disfunction Patient has suicidal ideation: No Patient has homicidal ideation: No Pulmonary Medical History: Reports: Hx Bronchitis, Hx Pneumonia Renal/ Medical History: Reports: Hx Kidney Stones. Denies: Hx Peritoneal Dialysis - Immunizations Hx Diphtheria, Pertussis, Tetanus Vaccination: Yes - 2014 [facility] Provider Document - CONSTITUTIONAL Notes: PHYSICAL EXAMINATION: GENERAL: Well-appearing, well-nourished and in no acute distress. HEAD: Atraumatic, normocephalic. EYES: Pupils equal round extraocular movements intact, conjunctiva are normal. Foreign body noted to left eye at 3:00 over the cornea. No corneal abrasion noted. ENT: Nares patent NECK: Normal range of motion LUNGS: No respiratory distress Musculoskeletal: Normal range of motion NEUROLOGICAL: Normal speech, normal gait. PSYCH: Normal mood, normal affect. SKIN: Warm, Dry, normal turgor, no rashes or lesions noted. - INFECTION CONTROL TRAVEL OUTSIDE OF THE [place] IN LAST 30 DAYS: No Course - Re-evaluation Re-evalutation: Visual acuity on arrival to emergency department 20/20 right eye, 20/20 left eye , 20/20 both eyes. Patient's eye examined after instillation of tetracaine drop. There is a foreign body to the cornea at 3:00. Foreign body was removed and patient does report improvement of his symptoms. There is no evidence of any corneal ulcer or corneal abrasion on examination with fluoroscopy seen. Patient will be placed on erythromycin ointment. Patient will be referred to ophthalmology, patient understands he needs to call them in the morning to make an appointment. - Vital Signs Vital signs: Temp Pulse Resp BP Pulse Ox 97.8 F 57 L 16 118/73 98 02/09/18 22:18 02/09/18 22:18 02/09/18 22:18 02/09/18 22:18 02/09/18 22:18 Discharge - Discharge Clinical Impression: Foreign body in cornea, left eye, initial encounter Condition: Stable Disposition: HOME, SELF-CARE Additional Instructions: Corneal Foreign Body You had a particle on the cornea of your eye. It's been removed, but your eye may be irritated until complete healing occurs. If a metal foreign body was imbedded in the eye, rust may develop in the cornea. If all the rust can't be removed at first, it can be removed at your follow-up visit. Following removal of a corneal foreign body, the usual treatment is to place antibiotics in the eye. If the eye is severely irritated, the pupil may be dilated to ease the pain. In addition, pain medication may be necessary. A follow-up visit is usually scheduled to assure healing. Do not drive or operate machinery until you have the full use of both your eyes. Healing of the area where the particle was embedded takes one to three days. If eye pain becomes severe, or if there is purulent drainage, eye swelling , or decreasing vision, call the doctor or return at once for re-evaluation. Please take the medication as prescribed, apply the ointment to your eye 4 times daily for 5-7 days. Please follow-up with ophthalmology, call them in the morning to get an appointment. Let them know you are seen in the emergency department for a corneal foreign body was removed. Prescriptions: Erythromycin Base [Erythromycin Oph 1 Gm Oint Ud] 1 applic OS QID #1 tube Referrals: [facility] [Provider Group] - Follow up as needed
[2018-02-10 01:16] VITALS: BP 122/75
== END 2018-02-10 01:14 | disposition home or self-care (01) ==
LOC: ER 21:13
DX: T15.02XA Foreign body in cornea, left eye, initial encounter (principal); H57.12 Ocular pain, left eye; X58.XXXA Exposure to other specified factors, initial encounter; Z87.891 Personal history of nicotine dependence
CPT/HCPCS: 99283

== ENCOUNTER 2018-08-07 08:31 | Emergency (ER) | payer SELFPAY ==
[2018-08-07] MEDS ORDERED: TETRACAINE HCL 0.5% OPH SOLN 4 ML OU ONE (08:44)
--- NOTE | 2018-08-07 10:25 | ER Document Report ---
HPI - HPI Patient complains to provider of: right eye FB Time Seen by Provider: 08/07/18 08:44 Pain Level: 5 Context: Pt. is a 28-year-old male presents to the emergency department with a foreign body in his right eye. 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 States this happened L. He states that he tried to extract the piece of foreign body with a toothpick but was unable. States he presents to the emergency room due to continued pain in the right eye and a foreign bodies sensation. Past medical history: None Medications: None Allergies: None - EENT EENT: REPORTS: Eye problems - NEURO Neurology: REPORTS: Vision blurred Past Medical History - General Information source: Patient - Social History Smoking Status: Current Every Day Smoker Chew tobacco use (# tins/day): No Frequency of alcohol use: None Drug Abuse: Marijuana Family History: Arthritis, CAD, CVA, DM, Hyperlipidemia, Hypertension, Malignancy, Thyroid Disfunction Patient has suicidal ideation: No Patient has homicidal ideation: No Pulmonary Medical History: Reports: Hx Bronchitis, Hx Pneumonia Renal/ Medical History: Reports: Hx Kidney Stones. Denies: Hx Peritoneal Dialysis - Immunizations Hx Diphtheria, Pertussis, Tetanus Vaccination: Yes - 2013 [employer] Provider Document - CONSTITUTIONAL Agree With Documented VS: Yes Notes: GENERAL: Alert, interacts well. No acute distress. HEAD: Normocephalic, atraumatic. EYES: Pupils equal, round, and reactive to light. Extraocular movements intact without pain. No proptosis noted. No swelling noted to upper or lower eyelid right side. Patient has an obvious 1 mm foreign body noted 7:00 in the patient's iris not over the pupil. Patient's eyelid was flipped with no other foreign body seen. Fluorescein stain reveals no signs of corneal abrasion no uptake noted near the foreign body. ENT: Oral mucosa moist, tongue midline. NECK: Full range of motion. Supple. Trachea midline. LUNGS: Clear to auscultation bilaterally, no wheezes, rales, or rhonchi. No respiratory distress. HEART: Regular rate and rhythm. No murmur ABDOMEN: Soft, non-tender. Non-distended. Bowel sounds present in all 4 quadrants. EXTREMITIES: Moves all 4 extremities spontaneously. No edema, normal radial and dorsalis pedis pulses bilaterally. No cyanosis. BACK: no cervical, thoracic, lumbar midline tenderness. No saddle anesthesia, normal distal neurovascular exam. NEUROLOGICAL: Alert and oriented x3. Normal speech. cranial nerves II through XII grossly intact. PSYCH: Normal affect, normal mood. SKIN: Warm, dry, normal turgor. No rashes or lesions noted. - INFECTION CONTROL TRAVEL OUTSIDE OF THE [place] IN LAST 30 DAYS: No Course - Re-evaluation Re-evalutation: 08/07/18 10:24 Discussed case with my attending who suggests sending the patient to ophthalmology. States since it is been 3 days a foreign body is likely epithelialized and will be unable to be removed in the emergency room. Discussed with patient close follow-up with ophthalmology. Patient states he does not have insurance or money. Discussed case with Edwina at [facility] who states she will come down to speak with the patient about other payment options. Patient voices understanding, stable for discharge. - Vital Signs Vital signs: Temp Pulse Resp BP Pulse Ox 97.5 F 53 L 16 118/83 99 08/07/18 08:38 08/07/18 08:38 08/07/18 08:38 08/07/18 08:38 08/07/18 08:38 Discharge - Discharge Clinical Impression: Foreign body in eye Qualifiers: Encounter type: initial encounter Laterality: right Qualified Code(s): T15.91XA - Foreign body on external eye, part unspecified, right eye, initial encounter Condition: Stable Disposition: HOME, SELF-CARE Instructions: Corneal Foreign Body ([facility]), Eyedrop Use ([facility]) Additional Instructions: As we discussed you have been seen and treated in the emergency department for a potential foreign body in your right eye. At this time we were unable to remove it. You should follow-up with ophthalmology as soon as possible. Please use antibiotic drops in the meantime. Please immediately return to the emergency room for any other concerning symptoms. Prescriptions: Ciprofloxacin HCl/Dexameth [Ciprodex Otic Suspension 7.5 ml Bottle] 4 drop AD QID #1 bottle Forms: Return to Work Referrals: TEJ TERRELL DO [ACTIVE STAFF] - Follow up as needed [facility] [Provider Group] - Follow up as needed
[2018-08-07 11:32] VITALS: BP 131/77
== END 2018-08-07 11:32 | disposition home or self-care (01) ==
LOC: ER 08:31
DX: T15.91XA Foreign body on external eye, part unspecified, right eye, initial encounter (principal); X58.XXXA Exposure to other specified factors, initial encounter; F17.200 Nicotine dependence, unspecified, uncomplicated
CPT/HCPCS: 99283; J3490

== ENCOUNTER 2020-01-17 01:24 | Emergency (ER) | payer SELFPAY ==
[2020-01-17 01:35] VITALS: BP 127/78
[2020-01-17] MEDS ORDERED: DIPH/PERTUSS(ACELL)/TETANUS VAC/PF 0.5 ML SYR (>=10YO) IM ONE (02:47)
[2020-01-17] MEDS ORDERED: LIDOCAINE 1% INJ-PF (10 MG/ML) 30 ML SDV INJ ONE (02:47)
--- NOTE | 2020-01-17 02:47 | ER Document Report ---
ED Animal Bite - General Chief Complaint: Dog Bite Stated Complaint: DOG BITE LEFT FOREARM/LEFT HIP Time Seen by Provider: 01/17/20 02:25 Mode of Arrival: Ambulatory Information source: Patient Notes: 29-year-old male patient presents emergency department with concern for dog bite. Patient reports he was walking his dog when another dog approached him, he tried to pet the dog and the dog bit him in the left forearm and left abdomen area. The dog was a stray dog but the patient reports of dog was not acting sickly. Patient unsure of his last Tdap. TRAVEL OUTSIDE OF THE [place] IN LAST 30 DAYS: No - HPI Context of attack: Approached animal Type of animal: Dog Appearance of animal: Appeared well - Related Data Allergies/Adverse Reactions: No Known Allergies Allergy (Verified 08/07/18 08:58) Past Medical History - General Information source: Patient - Social History Smoking Status: Current Every Day Smoker Frequency of alcohol use: None Drug Abuse: Marijuana Family History: Arthritis, CAD, CVA, DM, Hyperlipidemia, Hypertension, Malignancy, Thyroid Disfunction Patient has homicidal ideation: No Pulmonary Medical History: Reports: Hx Bronchitis, Hx Pneumonia Renal/ Medical History: Reports: Hx Kidney Stones. Denies: Hx Peritoneal Dialysis - Immunizations Hx Diphtheria, Pertussis, Tetanus Vaccination: Yes - 2013 Review of Systems - Review of Systems Skin: See HPI -: Yes All other systems reviewed and negative Physical Exam - Vital signs Vitals: Temp Pulse Resp BP Pulse Ox 97.4 F 56 L 16 127/78 H 100 01/17/20 01:25 01/17/20 01:25 01/17/20 01:25 01/17/20 01:25 01/17/20 01:25 - Notes Notes: PHYSICAL EXAMINATION: GENERAL: Well-appearing, well-nourished and in no acute distress. HEAD: Atraumatic, normocephalic. EYES: Pupils equal round and reactive to light, extraocular movements intact, sclera anicteric, conjunctiva are normal. ENT: Nares patent, oropharynx clear without exudates. Moist mucous membranes. NECK: Normal range of motion, supple without lymphadenopathy LUNGS: Breath sounds clear to auscultation bilaterally and equal. No wheezes rales or rhonchi. HEART: Regular rate and rhythm without murmurs ABDOMEN: Soft, nontender, nondistended abdomen. No guarding, no rebound. No masses appreciated. Musculoskeletal: Normal range of motion, no pitting or edema. No cyanosis. NEUROLOGICAL: Cranial nerves grossly intact. Normal speech, normal gait. Normal sensory, motor exams PSYCH: Normal mood, normal affect. SKIN: Puncture wound/laceration noted to left forearm, #1 measures 2 cm #2 which is distal to #1 measures 4 cm. No active bleeding noted. Adipose tissue is exposed. Course - Re-evaluation Re-evalutation: Lacerations to left forearm irrigated with Shur-Clens and saline. They were then closed loosely with sutures, patient tolerated well. Please see procedure note. Wounds to left abdomen did not need closure, these were cleaned and dressed. Patient understands ED return precautions. Patient will be started on Augmentin. Discussion was had with patient regarding rabies vaccine series, patient opts to not have rabies vaccine series at this time as he states that animal was not acting inappropriate or sickly. - Vital Signs Vital signs: Temp Pulse Resp BP Pulse Ox 97.4 F 56 L 16 127/78 H 100 01/17/20 01:25 01/17/20 01:25 01/17/20 01:25 01/17/20 01:25 01/17/20 01:25 Procedures - Laceration/Wound Repair LEFT FA #1 Wound length (cm): 2 Wound's Depth, Shape: Superficial Laceration pre-procedure: Sterile PPE donned Anesthetic type: 1% Lidocaine Irrigated w/ Saline (mLs): 250 Suture Size/Type: 4:0 Number of Sutures: 2 Layer Closure?: No Post-procedure wound care: Sterile dressing applied Post-procedure NV exam normal: Yes Complications: No LEFT FA #2 Wound length (cm): 4 Wound's Depth, Shape: Superficial, Irregular Laceration pre-procedure: Sterile PPE donned Anesthetic type: 1% Lidocaine Irrigated w/ Saline (mLs): 250 Wound Debrided: Minimal Wound Repaired With: Sutures Suture Size/Type: 4:0 Number of Sutures: 4 Layer Closure?: No Post-procedure wound care: Sterile dressing applied Post-procedure NV exam normal: Yes Complications: No Discharge - Discharge Clinical Impression: Dog bite Qualifiers: Encounter type: initial encounter Qualified Code(s): W54.0XXA - Bitten by dog, initial encounter Condition: Stable Disposition: HOME, SELF-CARE Additional Instructions: Animal Bites Animal bites are often heavily contaminated with bacteria. In spite of thorough cleansing and proper treatment, these wounds frequently become infect ed. Bite wounds of the hands are especially prone to complications. Bites are dressed, if possible. Large wounds may require suturing after internal cleansing. Because of infection risk, some large wounds must remain unstitched. Your doctor is trained to advise you on the best treatment for your bite. Call the doctor at once if the wound becomes red, swollen, warm, increasingly painful, or if it begins to drain. Danger signs also include red streaks up the involved extremity, swollen glands in the groin or under the arm, or fever and chills. The risk of rabies from domestic animals is very low. Bats, sick animals, and wild animals may expose you to rabies. The physician, or the health department, will inform you if you will need to receive the rabies vaccine. Augmentin Augmentin is a mixture of amoxicillin and clavulanate. Amoxicillin is a member of the penicillin family. It covers the germs likely to cause ear, bronchial, and urinary infections better than plain penicillin. The addition of clavulanate allows it to cover staph infections of the skin, as well as resistant cases of ear and sinus infections. Your physician has chosen Augmentin for you because of the special nature of your situation. Augmentin is best taken with meals. Nausea after taking the medication is rare, but can occur. Diarrhea can occur, particularly in small children. Vaginal yeast infections, and oral thrush in infants are also common. Contact your physician if these problems occur. Allergy to penicillins is common. If you have had an allergic reaction to any drug of the penicillin family, you should never take any other penicillin. Notify your doctor at once if you develop hives, shortness of breath, swelling, or faintness. Tetanus Immunization Given You have been given an immunization against tetanus. Please record this in your records. In general, a booster is needed only once every 10 years. The tetanus shot protects against tetanus or "lockjaw," which is a complication of certain wound infections (the tetanus shot cannot protect against the actual infection). The immunization site may become warm and red due to local reaction. If this occurs, apply warm compresses and take aspirin or ibuprofen to reduce inflammation and discomfort. Return for evaluation if the reaction becomes severe. Please take antibiotics as prescribed. Sutures will need to be removed in 8 to 10 days. Watch very closely for signs of infection to include increasing swelling, pain, redness, red streaking from the area, development of fever or any other worsening symptoms. Prescriptions: Amoxicillin/Potassium Clav [Augmentin 875-125 Tablet] 1 tab PO BID #14 tablet
== END 2020-01-17 03:56 | disposition home or self-care (01) ==
LOC: ER 01:24
DX: S31.159A Open bite of abdominal wall, unspecified quadrant without penetration into peritoneal cavity, initial encounter (principal); W54.0XXA Bitten by dog, initial encounter; Y93.K1 Activity, walking an animal; Z23 Encounter for immunization; F17.200 Nicotine dependence, unspecified, uncomplicated
CPT/HCPCS: 99283; 90471; 90715; 12001; J3490